=== PATIENT | female | born 1985 | race Caucasian/White ===

== ENCOUNTER 2016-08-02 13:39 | Emergency (ER) | payer SELFPAY ==
[2016-08-02 13:46] VITALS: RESP 16; O2SAT 98
--- NOTE | 2016-08-02 14:29 | EDPHY ---
H & P Stated Complaint: Genital sores, pain with urination, body aches, headache. HPI/ROS: CHIEF COMPLAINT: Labial lesions, headache, malaise HISTORY OF PRESENT ILLNESS: several days of headache that was quickly followed by outbreak of lesions on the left labia that she feels might be herpes. She describes a generalized malaise, headache, neck pain, joint pain, body aches. Some fever and chills. Generally not feeling well. Photosensitivity. She also feels this may be a migraine as these run in the family. She does feel that her neck is stiff. She has no chest pain or shortness of breath. She has multiple, small vesicular lesion on the left external labia. Very painful to the touch. No urinary complaints. No other associated complaints or modifying factors. This would be the 1st outbreak for her REVIEW OF SYSTEMS: Ten systems reviewed and are negative unless otherwise noted in the HPI EXAMINATION General Appearance: Alert, no distress Head: normocephalic, atraumatic Eyes: Pupils equal and round, no conjunctival pallor or injection ENT, Mouth: Mucous membranes moist Neck: Normal inspection, supple, non-tender. There is slow but complete range of motion all planes. Minimal pain with forward flexion. No rigidity. Negative Kernig. Respiratory: Lungs are clear to auscultation Cardiovascular: Regular rate and rhythm Gastrointestinal: Abdomen is soft and nontender : Pelvic performed with female director of physical therapy. The external lesions on the left labia that are vesicular consistent with HSV. Moderate vaginal tenderness palpation. Vaginal swabs performed with some scant discharge noted. Unable to finish pelvic secondary to labial pain. Back: non-tender, no bony abnormalities Neurological: A&O, nonfocal, Strength 5/5 in all limbs. Sensory intact. Skin: Warm and dry, no rash Extremities: Nontender, no pedal edema Psychiatric: Mood and affect normal DIFFERENTIAL DIAGNOSES: Including but not limited to HSV outbreak, influenza, viral illness, malaise MDM: systemic complaints that are consistent with 1st HSV outbreak, and her pelvic exam confirms the presence of HSV type vesicular lesions. Vaginal swabs are all pending at this time. We are commencing Valtrex treatment for the herpes outbreak. I did offer and recommend further workup for the headache and neck pain that she complains of. Although I have a very low clinical suspicion for this, I did offer and recommend CT head, laboratory studies and lumbar puncture. She is currently considering this with her significant other at this time. 4:08 p.m. I re-evaluated this patient. Laboratory studies of the wound wet prep were negative. The remaining vaginal swabs are pending. patient is feeling better at this time asking for p. o. dose of medication for headache. She feels the headache is much better at this time compared to when she was admitted to the ER. We have discussed at great length the risks, benefits and alternatives to further workup for headache and neck pain. She has declined. She is capable of assuming his risk and making this decision. She has decided to forego any further workup and wants to be discharged home. She is informed that she will return to the emergency department immediately should she have any worsening of her headache, fever, confusion or seizure-like activity. She will be discharged home in stable condition and instructed to follow up with primary care physician. Strict ER precautions were discussed. SUPERVISION:This patient was independently evaluated without the aide of supervising physician. Source: Patient, Family Exam Limitations: No limitations - Personal History LMP (Females 10-55): 15-21 Days Ago Current Tetanus Diphtheria and Acellular Pertussis (TDAP): Unsure - Medical/Surgical History Hx Asthma: No Hx Chronic Respiratory Disease: No Hx Diabetes: No Hx Cardiac Disease: No Hx Renal Disease: No Hx Cirrhosis: No Hx Alcoholism: No Hx HIV/AIDS: No Hx Splenectomy or Spleen Trauma: No Other PMH: Denies - Social History Smoking Status: Never smoked Constitutional: Initial Vital Signs Temperature (C) 98.6 F 08/02/16 13:40 Heart Rate 82 08/02/16 13:40 Respiratory Rate 16 08/02/16 13:40 Blood Pressure 104/68 08/02/16 13:40 O2 Sat (%) 98 08/02/16 13:40 O2 Delivery Mode Room Air Allergies/Adverse Reactions: No Known Allergies Allergy (Unverified 08/02/16 13:46) Home Medications: Medication Instructions Recorded Metoclopramide [Reglan 10 mg tab 10 mg PO Q8 PRN #15 tab 08/02/16 (*)] Valacyclovir HCl [Valtrex] 1,000 mg PO Q12 #20 tablet 08/02/16 Medical Decision Making - Data Points Laboratory Results: 08/02/16 08/02/16 15:20 14:30 Trichomonas (Wet Prep) 1+ BACTERIA Jaqueline species DNA Pending C.trachomatis RNA (TMA) Pending Gardnerella DNA Probe Pending HSV Source Description Pending HSV I DNA PCR Pending HSV II DNA PCR Pending Influenza Typ A,B (DFA) NEGATIVE FOR FLU (NEGATIVE) N.gonorrhoeae RNA (TMA) Pending Trichomonas DNA Probe Pending Medications Given: Discontinued Medications Valacyclovir HCl (Valtrex) 1,000 mg PO EDNOW ONE Stop: 08/02/16 15:24 Last Admin: 08/02/16 15:43 Dose: 1,000 mg Departure - Departure Disposition: Home, Routine, Self-Care Clinical Impression: HSV (herpes simplex virus) infection, Myalgia Headache Qualifiers: Headache type: unspecified Headache chronicity pattern: acute headache Intractability: not intractable Qualifier Code: (R51) Headache Condition: Good Instructions: Migraine Headache (ED), Acute Headache (ED), Genital Herpes Simplex (ED) Referrals: NONE *PRIMARY CARE P,. [Primary Care Provider] - As per Instructions Jair Montoya MD [Medical Doctor] - As per Instructions Prescriptions: Metoclopramide [Reglan 10 mg tab (*)] 10 mg PO Q8 PRN #15 tab PRN Reason: Headache Valacyclovir HCl [Valtrex] 1,000 mg PO Q12 #20 tablet
[2016-08-02] MEDS ORDERED: valACYclovir 500 MG TAB PO ONE (15:23)
[2016-08-02] MEDS ORDERED: diphenhydrAMINE 25 MG CAP PO ONE (16:10)
[2016-08-02] MEDS ORDERED: METOCLOPRAMIDE 10 MG TAB PO ONE (16:10)
[2016-08-02 16:32] VITALS: BP 108/70; PULSE 81
[2016-08-02 16:33] VITALS: TEMP 98.2
[2016-08-03 12:28] LABS: CHLAMYDIA AMPLIFICATION GENPRB NEGATIVE (NEGATIVE)
[2016-08-03 19:57] LABS: SPECIMEN SOURCE EXTERNAL LABIA (())
== END 2016-08-02 16:33 | disposition home or self-care (01) ==
DX: R51 Headache (principal); B00.9 Herpesviral infection, unspecified; M79.1 Myalgia
CPT/HCPCS: 87529-90